=== PATIENT | female | born 1990 | race Hispanic/Latino ===

== ENCOUNTER 2024-10-29 15:39 | Emergency (ER) | payer SELFPAY ==
[~2024-10-29] VITALS: Ht 154.9 cm; Wt 58.1 kg
--- NOTE | 2024-10-29 16:04 | ERN ---
ED Note History of Present Illness Stated Complaint: FLULIKE SYMPTOMS Chief Complaint: Flu Symptoms Time Seen by MD: 15:42 Time Seen by Midlevel: 15:42 Dictation: 34-year-old female presents to the emergency department due to reported having a fever, runny nose, sore throat, body aches and an occasional nonproductive cough that began 3 days ago. She states that she has had a temperature as high as 101 F. Patient denies having had contact with anybody with similar symptoms. She states that she is able to eat solid foods and drink fluids. Upon initial evaluation, the patient presents in no acute respiratory distress. Allergies: Coded Allergies: No Known Allergies (Unverified Allergy, Unknown, 10/29/24) Emergency Care QUALITY CLOTH TESTER: None Home Meds Active Scripts Albuterol Sulfate (Ventolin Hfa/Proventil Hfa/Proair Hfa) 90 Mcg Puff, 2 PUFF IH Q4H PRN for SHORTNESS OF BREATH/WHEEZING for 30 Days, #1 INH 0 Refills Prov:ALFIE SLATERP 10/29/24 Oseltamivir Phosphate (Tamiflu) 75 Mg Cap, 75 MG PO BID for 5 Days, #10 CAP Prov:ALFIE SLATER 10/29/24 Past Medical History Past Medical History: No Pertinent History Surgical History: PSYCH History: no pertinent psych hx Social History: Lives with family LMP: Oct 15, 2024 RN Note Reviewed/Agreed w/PFSH: Yes Review of System Dictation Constitutional: Fever, chills, body aches ENT: Runny nose, sore throat Respiratory: Nonproductive cough Initial Vital Sign VS Vital Signs Date Time Temp Pulse Resp B/P (MAP) Pulse Ox O2 Delivery O2 Flow Rate FiO2 10/29/24 15:42 98.6 89 20 115/70 98 10/29/24 17:57 Room Air* 0 21 Physical Exam Dictation General: awake, alert, NAD Head/Face: Normocephalic, atraumatic Eyes: PERRL, EOMI ENT: Oral mucosa moist, bilateral nasal congestion, erythematous pharynx Neck: Trachea midline, supple Cardiovascular: RRR, no edema Respiratory: Symmetrical, non-labored Abdomen: Soft, non-tender, non-distended, no guarding. Skin: Warm, dry, good turgor, no rash MS/Extremity: Pulses equal, no cyanosis, neurovascular intact, FROM Neuro: COAx4, GCS 15, steady gait, Psych: Normal behavior, mood, and affect normal Results (Laboratory/Radiology) Laboratory/Radiology Laboratory Tests Test 10/29/24 15:50 Influenza Type A Antigen POSITIVE FOR TYPE A Influenza Type B Antigen NEGATIVE FOR TYPE B SARS-CoV-2, RNA, NAAT NEGATIVE SARS CoV-2 Positive influenza a Labs Reviewed?: Yes ED Course ED Course Orders Procedure Category Date Status Time Covid Rna Naat LAB 10/29/24 Complete 15:46 Influenza Type A & B, LAB 10/29/24 Complete Rapid 15:46 Vital Signs Date Time Temp Pulse Resp B/P (MAP) Pulse Ox O2 Delivery O2 Flow Rate FiO2 10/29/24 17:57 98.6 89 16 115/70 98 Room Air* 0 21 10/29/24 15:42 98.6 89 20 115/70 98 Medical Decision Making MDM MDM: Differential diagnosis: Influenza a, influenza B, COVID, viral illness. Rationale: Tests considered and ordered secondary to shared decision making include: Previous outside records reviewed: Old ER visits. Risk of complication and/or morbidity or mortality of patient management: None Medications-Per medication reconciliation Need for hospitalization: Patient does not meet criteria for hospitalization. Need for emergency major/minor surgery: No There are no social concerns with this patient. Prescription drug management Prescriptions will include symptomatic care Patient's prior external medical records from other ER visits were reviewed by me as indicated. Prior testing and results from previous visits were reviewed. Prior tests were taken into account with medical decision making and resource utilization, independent historian/historians were used to obtain complete medical history. I independently interpreted the test that were performed, results were reviewed by me and considered findings on radiology if ordered. Medical management and examination interpretation discussions were had by me with other qualified healthcare professionals as indicated for the patient's care. DX & DISP Disposition: Discharge Departure Impression: Primary Impression: Influenza A Condition: Stable Scripts Albuterol Sulfate (Ventolin Hfa/Proventil Hfa/Proair Hfa) 90 Mcg Puff 2 PUFF IH Q4H PRN for SHORTNESS OF BREATH/WHEEZING for 30 Days, #1 INH 0 Refills Prov: ALFIE SLATER 10/29/24 Oseltamivir Phosphate (Tamiflu) 75 Mg Cap 75 MG PO BID for 5 Days, #10 CAP Prov: ALFIE SLATER 10/29/24 Referrals: NONE (PCP) Time of Disposition: 17:56 I performed a substantive portion of the visit. I have reviewed and personally made and approve the management plan that is documented in the notes by myself with IGOR/resident. I acknowledged full responsibility for the patient's management plan. ALFIE SLATER Oct 29, 2024 16:04 ALESSANDRA OREILLY DO Oct 30, 2024 07:51
[2024-10-29 17:49] LABS: SARS-CoV-2, RNA, NAAT NEGATIVE SARS CoV-2 (NEGATIVE)
--- NOTE | 2024-10-29 17:54 | NUR ---
FLU A +, ERMD MADE AWARE
[2024-10-29] MEDS ORDERED: ALBUHFA IH (17:56)
[2024-10-29] MEDS ORDERED: OSEL75 PO (17:56)
[2024-10-29 17:57] VITALS: BP 115/70; PULSE 89; RESP 16; TEMP 98.6; O2SAT 98
[2024-10-29 18:04] LABS: INFLUENZA TYPE A POSITIVE FOR TYPE A (NEGATIVE); INFLUENZA TYPE B NEGATIVE FOR TYPE B (NEGATIVE)
--- NOTE | 2024-10-29 18:05 | NUR ---
DINO PINEDA [id number] DEPART DELAY DUE TO REGISTRATION
== END 2024-10-29 18:03 | disposition home or self-care (01) ==
LOC: EDH 15:39
DX: J10.1 Influenza due to other identified influenza virus with other respiratory manifestations (principal); Z20.822 Contact with and (suspected) exposure to COVID-19; Z79.899 Other long term (current) drug therapy; Z98.890 Other specified postprocedural states
CPT/HCPCS: 87635; 87804; 99283